=== PATIENT | male | born 1995 | race Caucasian/White ===

== ENCOUNTER 2023-05-09 10:29 | Emergency (ER) | payer MEDICAID ==
[~2023-05-09] VITALS: Ht 162.6 cm; Wt 98.0 kg
[2023-05-09 10:33] VITALS: O2SAT 100
[2023-05-09] MEDS ORDERED: METHYLPREDNISOLONE SOD SUCC 125MG/2ML (ACT-O-VIAL) IV ONE (11:15)
[2023-05-09] MEDS ORDERED: EPINEPHRINE 1:1000 1 MG/ML AMP INJ ONE (11:15)
[2023-05-09] MEDS ORDERED: EPINEPHRINE 0.1MG/ML (1:10,000) 10ML SYR IV ONE (11:15)
[2023-05-09] MEDS ORDERED: FAMOTIDINE 20MG/2ML VIAL IV ONE (11:15)
[2023-05-09] MEDS ORDERED: DIPHENHYDRAMINE 50MG/ML VIAL IV ONE (11:15)
[2023-05-09] MEDS ORDERED: P50 MT (13:46)
[2023-05-09] MEDS ORDERED: DIPH25CA83 MT (13:46)
[2023-05-09] MEDS ORDERED: FAMO-135 MT (13:46)
[2023-05-09] MEDS ORDERED: EPIN0.3P3 IM (13:46)
[2023-05-09 13:59] VITALS: BP 123/74; PULSE 98; RESP 14; TEMP 98.6
== END 2023-05-09 14:06 | disposition home or self-care (01) ==
LOC: ER 10:29
DX: T88.6XXA Anaphylactic reaction due to adverse effect of correct drug or medicament properly administered, initial encounter (principal); T39.315A Adverse effect of propionic acid derivatives, initial encounter; J45.909 Unspecified asthma, uncomplicated; Z88.6 Allergy status to analgesic agent; X58.XXXA Exposure to other specified factors, initial encounter
CPT/HCPCS: 96374; 96375; 99284; J1200; J3490 ×2; J2930; Z7610 ×4